=== PATIENT | female | born 1950 | race Caucasian/White ===

== ENCOUNTER → 2016-10-24 | Outpatient (CLI) | payer MEDICARE, OTHER ==
--- NOTE | 2016-10-24 16:23 | RAD ---
ABDOMEN LTD Clinical Indication: Abdominal wall mass since surgery on 09/05/2016, pain, tenderness Comparison: None. Findings: Ill-defined, hypoattenuating collection in the area of concern which measures 3.1 x 1.2 x 1.4 cm. It contains peripheral vascularity. IMPRESSION: Small ill-defined, hypoattenuating collection in the area of concern which contains peripheral vascularity. Findings appear to relate to a fluid collection. Given recent surgery, this may relate to seroma or hematoma. Abscess cannot be excluded.
== END | disposition home or self-care (01) ==
LOC: US 09:32
PROVIDERS: ATTEND Family Medicine
DX: R22.2 Localized swelling, mass and lump, trunk (principal); R10.9 Unspecified abdominal pain
CPT/HCPCS: 76705